=== PATIENT | female | born 1965 | race Two or more races ===

== ENCOUNTER → 2023-06-05 | Emergency (ER) | payer BC ==
[~2023-06-05] VITALS: Ht 157.5 cm; Wt 51.3 kg
[~2023-06-05] MED LIST: ACETAMINOPHEN ES 500 MG TABLET ONE; IBUPROFEN 400 MG TABLET ONE
[2023-06-05 10:28] VITALS: BP 104/68; TEMP 98; O2SAT 99
[2023-06-05] MEDS: IBUPROFEN 400 MG TABLET PO ONE (11:00)
[2023-06-05] MEDS: ACETAMINOPHEN ES 500 MG TABLET PO ONE (11:02)
== END | disposition home or self-care (01) ==
LOC: ER 10:24
DX: S63.501A Unspecified sprain of right wrist, initial encounter (principal); W01.0XXA Fall on same level from slipping, tripping and stumbling without subsequent striking against object, initial encounter; Y93.89 Activity, other specified; Y92.89 Other specified places as the place of occurrence of the external cause; Y99.8 Other external cause status
CPT/HCPCS: 73110